=== PATIENT | male | born 1945 | race Caucasian/White ===

== ENCOUNTER 2021-10-05 18:23 | Emergency (ER) | payer MEDICARE, OTHER ==
[2021-10-05] MEDS ORDERED: Iopamidol 755 Mg/ML 75 ML Bottle IV ONE (19:29)
[2021-10-05] MEDS ORDERED: Azithromycin 500 MG Tab PO ONE (20:35)
[2021-10-05] MEDS ORDERED: Furosemide 40 MG Tab PO ONE (20:35)
== END 2021-10-05 21:14 | disposition home or self-care (01) ==
LOC: FB.ED 18:23
DX: J90 Pleural effusion, not elsewhere classified (principal); R91.8 Other nonspecific abnormal finding of lung field
CPT/HCPCS: 36415; 71046; 71275; 83880; 84484; 85379; 99283; 99285-25; A9270-GY; Q9967

== ENCOUNTER 2021-10-25 15:14 | Inpatient (IN) | payer MEDICARE, OTHER ==
[2021-10-25] MEDS ORDERED: Acetaminophen 500 MG Tab PO ONE (15:28)
[2021-10-25 16:00] LABS: ESTIMATED GFR 70 mL/min (>60)
[2021-10-25] MEDS ORDERED: Sodium Chloride 0.9% 1,000 ML IV ONE ×2 (16:04→17:06)
[2021-10-25] MEDS ORDERED: cefTRIAXone 1 GM in Sodium Chloride 0.9% 50 ML IV ONE (16:30)
[2021-10-25] MEDS ORDERED: cefTRIAXone 1 GM Vial ONE (16:38)
[2021-10-25] MEDS ORDERED: cefTRIAXone 1 GM Vial IVPUSH ONE (16:45)
[2021-10-25] MEDS ORDERED: Ondansetron 4 MG Tab.DIS PO PRN (17:43)
[2021-10-25] MEDS ORDERED: OLANZapine 5 MG Tab PO SCH (18:00)
[2021-10-25] MEDS ORDERED: Sodium Chloride 0.9% 1,000 ML IV SCH ×2 (18:00→23:45)
[2021-10-25] MEDS: Meropenem 1 GM SDV IVPUSH SCH (18:04)
[2021-10-25] MEDS: Apixaban 5 MG Tab PO SCH (21:24)
[2021-10-26] MEDS: Meropenem 1 GM SDV IVPUSH SCH (02:38)
[2021-10-26 06:27] LABS: ESTIMATED GFR 93 mL/min (>60)
[2021-10-26] MEDS: Acetaminophen 325 MG Tab PO PRN ×3 (07:34→22:36)
[2021-10-26] MEDS: [UNRECOGNIZED DRUG - OTHER] PO SCH ×4 (10:03→22:43)
[2021-10-26] MEDS: Apixaban 5 MG Tab PO SCH ×2 (10:03→18:58)
[2021-10-26] MEDS: Folic Acid 1 MG Tab PO SCH (10:03)
[2021-10-26] MEDS: Polyethylene Glycol 3350 Powder 17 GM Packet PO SCH (10:25)
[2021-10-26] MEDS: guaiFENesin 600 MG Tab.ER PO SCH ×2 (10:25→22:44)
[2021-10-26] MEDS: cefTRIAXone 2 GM Vial IVPUSH SCH (10:31)
[2021-10-26] MEDS ORDERED: VANCOmycin 1.5 GM/300 ML 300 ML IV ONE (11:00)
[2021-10-26] MEDS ORDERED: VANCOmycin 1 GM/200 ML 200 ML IV SCH (23:00)
[2021-10-27 07:13] LABS: ESTIMATED GFR 97 mL/min (>60)
[2021-10-27] MEDS: [UNRECOGNIZED DRUG - OTHER] PO SCH ×2 (08:00→11:25)
[2021-10-27] MEDS: Folic Acid 1 MG Tab PO SCH (08:02)
[2021-10-27] MEDS: guaiFENesin 600 MG Tab.ER PO SCH (08:03)
[2021-10-27] MEDS: Polyethylene Glycol 3350 Powder 17 GM Packet PO SCH ×2 (08:03→08:06)
[2021-10-27] MEDS ORDERED: Apixaban 5 MG Tab PO SCH (09:00)
[2021-10-27] MEDS: Sodium Chloride 0.9% 10 ML Syringe FLUSH PRN ×2 (09:23→11:17)
[2021-10-27] MEDS: cefTRIAXone 2 GM Vial IVPUSH SCH (09:24)
[2021-10-27] MEDS ORDERED: VANCOmycin 1.25 GM/250 ML 250 ML IV SCH (11:00)
[2021-10-27] MEDS: Acetaminophen 325 MG Tab PO PRN (15:28)
== END 2021-10-27 16:05 | disposition home or self-care (01) | DRG 871 ==
LOC: FB.ED 15:14 → FB.MS 16:33
PROVIDERS: ADMIT Family Medicine; ATTEND Family Medicine
DX: A41.9 Sepsis, unspecified organism (principal); J96.01 Acute respiratory failure with hypoxia; J18.9 Pneumonia, unspecified organism; W19.XXXA Unspecified fall, initial encounter; E87.1 Hypo-osmolality and hyponatremia; Z79.01 Long term (current) use of anticoagulants; Z79.899 Other long term (current) drug therapy; I82.401 Acute embolism and thrombosis of unspecified deep veins of right lower extremity; C79.51 Secondary malignant neoplasm of bone; C78.7 Secondary malignant neoplasm of liver and intrahepatic bile duct; C34.90 Malignant neoplasm of unspecified part of unspecified bronchus or lung; J90 Pleural effusion, not elsewhere classified; Z20.822 Contact with and (suspected) exposure to COVID-19; R65.20 Severe sepsis without septic shock; E86.0 Dehydration; K21.9 Gastro-esophageal reflux disease without esophagitis; F17.200 Nicotine dependence, unspecified, uncomplicated; G89.29 Other chronic pain; M54.9 Dorsalgia, unspecified
CPT/HCPCS: 36415; 71046; 80048; 80202; 81001; 83605; 83735; 85025; 85027; 87040; 87070; 87205; 93005; 96361; 96374; 99222; 99238; 99284; 99285-25; A9270-GY; J0696; J2185; J3370; J3490; J7030; U0002

== ENCOUNTER 2025-04-11 13:42 | Emergency (ER) | payer MEDICARE, OTHER ==
[2025-04-11] MEDS ORDERED: Sodium Chloride 0.9% 10 ML Syringe FLUSH PRN (14:07)
[2025-04-11] MEDS: Lidocaine 2% HCl 6 ML Jel MM ONE (14:13)
[2025-04-11 14:30] LABS: BASOPHILS ABSOLUTE AUTO 0.1 x10-3/uL (0.0-0.3); BASOPHILS PERCENT AUTO 0.8 % (0.3-3.8); EOSINOPHILS ABSOLUTE AUTO 0.2 x10-3/uL (0.0-0.6); EOSINOPHILS PERCENT AUTO 2.5 % (0.1-6.8); LYMPHOCYTES ABSOLUTE AUTO 1.0 x10-3/uL (0.5-4.5); LYMPHOCYTES PERCENT AUTO 13.6 % (15.8-45.3); MEAN PLATELET VOLUME 9.2 fL (6.7-11.0); MONOCYTES ABSOLUTE AUTO 0.4 x10-3/uL (0.0-1.2); MONOCYTES PERCENT AUTO 6.2 % (5.5-15.2); NEUTROPHILS ABSOLUTE AUTO 5.4 x10-3/uL (1.7-6.9); NEUTROPHILS PERCENT AUTO 76.9 % (40.3-71.8); PLATELET COUNT,PLT 250 x10(3)uL (117-477); RED BLOOD CELL COUNT 4.32 x10(6)uL (3.90-5.90); RED CELL DISTRIBUTION WIDTH 14.9 % (12.4-15.0); WHITE BLOOD CELL COUNT,WBC 7.1 x10-3/uL (3.2-10.1)
[2025-04-11 14:38] LABS: A/G RATIO 1.1; ALANINE AMINOTRANSFERASE,ALT 32 U/L (12-36); ASPARTATE AMNIOTRANSFERASE,AST 30 IU/L (5-25); BILIRUBIN TOTAL 0.3 mg/dL (0.1-1.3); CARBON DIOXIDE,CO2 22 mmol/L (21-32); CHLORIDE,CL 106 mmol/L (100-110); ESTIMATED GFR 5 mL/min (>60); GLUCOSE RANDOM 77 mg/dL (80-116); POTASSIUM,K 5.4 mmol/L (3.5-5.3); PROTEIN TOTAL,TP 6.8 g/dL (6.0-8.0); SODIUM,NA 143 mmol/L (135-145)
[2025-04-11 14:42] LABS: BLOOD UREA NITROGEN,BUN 111 mg/dL (7-18); CREATININE 9.9 mg/dL (0.70-1.30)
[2025-04-11] MEDS ORDERED: Lidocaine 2% HCl 6 ML Jel MM ONE (14:57)
== END 2025-04-11 16:11 ==
LOC: FB.ED 13:42
DX: N17.9 Acute kidney failure, unspecified (principal); R33.9 Retention of urine, unspecified; E83.41 Hypermagnesemia; Z79.01 Long term (current) use of anticoagulants; Z79.899 Other long term (current) drug therapy
CPT/HCPCS: 36415; 51702; 80053; 83605; 83735; 85025; 86140; 99284; A9270; 99285